=== PATIENT | female | born 1965 | race Caucasian/White ===

== ENCOUNTER 2021-02-25 15:01 | Outpatient (CLI) | payer BC, SELFPAY ==
--- NOTE | ~2021-02-25 | MM_ITS ---
EXAMINATION: MM screening [facility] w [facility] HISTORY: Screening mammogram, family history of breast cancer in her mother. TECHNIQUE: Craniocaudal and mediolateral oblique 3-D tomosynthesis images were obtained and synthetic 2-D images were generated. CAD analysis was submitted and interpreted. COMPARISON: 05/28/2015, 01/23/2014, 07/17/2013, 07/11/2013 BREAST PARENCHYMAL COMPOSITION: There are scattered areas of fibroglandular density. FINDINGS: There is no evidence of suspicious mass, calcification, or architectural distortion to sugg est malignancy in either breast. There has been no suspicious interval change. IMPRESSION: 1. No mammographic evidence of malignancy. 2. Recommend routine screening mammography in one year. BI-RADS Category 1: Negative Reviewed, dictated and finalized at location A.
== END 2021-02-25 15:02 | disposition home or self-care (01) ==
LOC: ANHIMG 15:06
PROVIDERS: PCP Nurse Practitioner Family; Visit Provider Nurse Practitioner Family
DX: Z12.31 Encounter for screening mammogram for malignant neoplasm of breast (principal)
CPT/HCPCS: 77063; 77067

== ENCOUNTER 2022-05-12 14:56 | Outpatient (CLI) | payer BC, SELFPAY ==
--- NOTE | ~2022-05-12 | MM_ITS ---
EXAMINATION: MM screening [facility] BI w cyrus HISTORY: Screening mammogram TECHNIQUE: Craniocaudal and mediolateral oblique 3-D tomosynthesis images were obtained and synthetic 2-D images were generated. CAD analysis was submitted and interpreted. COMPARISON: 02/25/2021, 05/28/2015, 02/02/2014, 07/17/2013, 07/11/2013 BREAST PARENCHYMAL COMPOSITION: There are scattered areas of fibroglandular density. FINDINGS: There is no suspicious mass, calcification, or architectural distortion to suggest malignan cy in either breast. There has been no suspicious interval change. IMPRESSION: 1. No mammographic evidence of malignancy. 2. Recommend routine screening mammography in one year. BI-RADS Category 1: Negative Reviewed, dictated and finalized at location A.
== END 2022-05-12 14:57 | disposition home or self-care (01) ==
PROVIDERS: PCP Nurse Practitioner Family; Visit Provider Nurse Practitioner Family
DX: Z12.31 Encounter for screening mammogram for malignant neoplasm of breast (principal)
CPT/HCPCS: 77063; 77067

== ENCOUNTER 2023-05-07 14:18 | Emergency (ER) | payer BC, SELFPAY ==
[2023-05-07 14:32] VITALS: BP 135/76; PULSE 89; RESP 20; TEMP 36.3; O2SAT 99
--- NOTE | 2023-05-07 15:01 | ED.FEMALEGU ---
HPI - Female Genitourinary General Chief complaint: Urogenital-Female Stated complaint: uti Time Seen by Provider: 05/07/23 14:40 Source: patient Mode of arrival: ambulatory Limitations: no limitations History of Present Illness HPI Narrative: Kendal Fowler is a 57-year-old female patient presenting to the clinic today with complaints of a possible UTI. She is reporting she is having some left-sided abdominal discomfort, burning with urination, and blood in her urine. She had take some azo this morning. She denies any fever or chills or any flank pain. Related Data Home Medications Medication Instructions Recorded Confirmed atorvastatin 10 mg tablet 10 mg PO DAILY 05/07/23 05/07/23 escitalopram oxalate 5 mg tablet 5 mg PO DAILY 05/07/23 05/07/23 fluticasone propionate 50 50 mcg intranasal BID 05/07/23 05/07/23 mcg/actuation nasal spray,suspension lisinopril 10 1 tablet PO DAILY 05/07/23 05/07/23 mg-hydrochlorothiazide 12.5 mg tablet omeprazole 40 mg capsule,delayed 40 mg PO DAILY 05/07/23 05/07/23 release Allergies Allergy/AdvReac Type Severity Reaction Status Date / Time No Known Allergies Allergy Unverified 05/07/23 14:27 Review of Systems Review of Systems: Pertinent positives per HPI. Patient denies any fever, chills, rash, headache, visual changes, dizziness, cough, runny nose, sore throat, shortness of breath, chest pain, palpitations, nausea, vomiting, diarrhea, constipation PMFSH Comments At the time of my signature, I reviewed and agree with the nursing past medical, surgical, social, and family history. There is no relevant family history pertinent to the patient complaint. Exam Narrative: General: Well-developed, well nourished, in no apparent distress. Head: Normocephalic, atraumatic. Cardio: Regular rate and rhythm, s1 and s2 normal, no murmur appreciated. Resp: Clear to auscultation bilaterally, no rhonchi, rales, wheezing or rubs. Abdomen: Soft, pliable, bowel sounds present in all quadrants, mild tender to palpation over the left lower abdomen, no organomegly, no CVAT tenderness. Course Course Emergency Course: Portions of this record may have been created with voice recognition software. Level of Care: Express Care Visit Vital Signs Vital signs: Vital Signs Temperature 36.3 C L 05/07/23 14:32 Pulse Rate 89 05/07/23 14:32 Respiratory Rate 20 05/07/23 14:32 Blood Pressure 135/76 05/07/23 14:32 Pulse Oximetry 99 05/07/23 14:32 Oxygen Delivery Room Air 05/07/23 14:32 Temperature 36.3 C L 05/07/23 14:32 Pulse Rate 89 05/07/23 14:32 Respiratory Rate 20 05/07/23 14:32 Blood Pressure 135/76 05/07/23 14:32 Pulse Oximetry 99 05/07/23 14:32 Oxygen Delivery Room Air 05/07/23 14:32 Vital signs reviewed MDM - Female Genitourinary MDM Narrative Medical decision making narrative: At the time of visit patient is resting comfortably on the exam table. Patient is reporting some mild left lower abdomen tenderness and burning with urination with blood in her urine that she knows this morning. Denies any history of kidney stones. She has taken azo this morning so this skewed the UA dip. Will send for culture. Will place the patient on Augmentin. Supportive measures were discussed with the patient she voiced understanding discharge instructions agrees to treatment plan. Differential Diagnosis Differential diagnosis: Likely urinary tract infection, cystitis and other (Pyelonephritis, ureterolithiasis) Lab Data Labs: Urine Glucose Trace Reference Range: Negative Urine Bilirubin 1+ Reference Range: Negative Urine Ketone Negative Reference Range: Negative Urine Specific [place] 1.030
== END 2023-05-07 15:07 | disposition home or self-care (01) ==
PROVIDERS: Emergency Provider Nurse Practitioner Family; PCP Nurse Practitioner Family
DX: N30.01 Acute cystitis with hematuria (principal); E78.00 Pure hypercholesterolemia, unspecified; I10 Essential (primary) hypertension
CPT/HCPCS: 81003; 87077; 87086; 87186; 99213; G0463

== ENCOUNTER 2023-10-07 08:21 | Outpatient (CLI) | payer BC, SELFPAY ==
[2023-10-07 17:50] LABS: Basophils Absolute Auto 0.1 K/mm3 (0.0-0.1); Basophils Percent Auto 0.7 % (0.2-1.2); Eosinophils Absolute Auto 0.1 K/mm3 (0-0.3); Eosinophils Percent Auto 1.4 % (0-4.4); Hematocrit 39.4 % (37.0-47.0); Hemoglobin 12.4 g/dL (12.0-15.0); Immature Granulocyte Absolute 0.02 K/mm3 (0.00-0.031); Immature Granulocyte Percent A 0.3 % (0-0.5); Lymphocytes Absolute Auto 2.31 K/mm3 (0.9-3.2); Lymphocytes Percent Auto 33.2 % (18.3-44.2); Mean Corpuscular HGB Conc 31.5 g/dl (32-36); Mean Corpuscular Hemoglobin 29.6 pg (26-34); Mean Platelet Volume 9.5 fl (7.4-10.4); Monocytes Absolute Auto 0.5 K/mm3 (0.1-0.6); Monocytes Percent Auto 6.5 % (2.6-8.5); Neutrophils Percent Auto 57.9 % (45.5-73.1); Platelet Count Result 265 k/mm3 (150-375); Red Blood Count 4.19 M/mm3 (4.2-5.4); Red Cell Distribution Width 12.8 % (11.5-14.5)
[2023-10-07 18:02] LABS: Vitamin D 25 Hydroxy 67.3 ng/mL
[2023-10-07 18:03] LABS: Alanine Aminotransferase 31 U/L (6-35); Albumin Level 4.4 g/dL (3.5-5.1); Alkaline Phosphatase 79 U/L (38-126); Anion Gap 7 mmol/L (8-16); Aspartate Amino Transferase 48 U/L (14-36); Bilirubin,Total 0.8 mg/dL (0.2-1.3); Blood Urea Nitrogen 17 mg/dL (7-17); Calcium 9.8 mg/dL (8.4-10.2); Carbon Dioxide 32 mmol/L (22-30); Chloride 102 mmol/L (98-107); Cholesterol 178 mg/dL (0-200); Estimated Glomerular Filt Rate > 60; Glucose 80 mg/dL (65-110); HDL Direct 44 mg/dL; Sodium 141 mmol/L (137-145); Triglycerides 144 mg/dL (<150)
[2023-10-07 18:15] LABS: LDL Cholesterol Direct 105 mg/dL
[2023-10-07 18:34] LABS: Hemoglobin A1C 5.5 % (<5.7)
== END 2023-10-07 08:22 | disposition home or self-care (01) ==
LOC: ANHGOSHLAB 08:22
PROVIDERS: PCP Nurse Practitioner Family; Visit Provider Nurse Practitioner Family
DX: Z00.00 Encounter for general adult medical examination without abnormal findings (principal); E78.5 Hyperlipidemia, unspecified; R73.03 Prediabetes; E55.9 Vitamin D deficiency, unspecified; Z13.29 Encounter for screening for other suspected endocrine disorder
CPT/HCPCS: 36415; 80053; 80061; 82306; 83036; 84443; 85025

== ENCOUNTER 2023-11-22 15:17 | Outpatient (CLI) | payer BC, SELFPAY ==
--- NOTE | ~2023-11-22 | MM_ITS ---
EXAMINATION: MM screening [facility] BI w [facility] HISTORY: Screening TECHNIQUE: Craniocaudal and mediolateral oblique 3-D tomosynthesis images were obtained and synthetic 2-D images were generated. CAD analysis was submitted and interpreted. COMPARISON: Comparison to multiple prior studies sequentially, with oldest reviewed study dated 02/2015. BREAST PARENCHYMAL COMPOSITION: Not dense: There are scattered areas of fibroglandular density. FINDINGS: There is no evidence of suspicious mass, calcification, or architectural distortion to sugg est malignancy in either breast. There has been no suspicious interval change. IMPRESSION: 1. No mammographic evidence of malignancy. 2. Recommend routine screening mammography in one year. BI-RADS Category 1: Negative Reviewed, dictated and finalized at location A.
== END 2023-11-22 15:18 | disposition home or self-care (01) ==
PROVIDERS: PCP Family Medicine; Visit Provider Nurse Practitioner Family
DX: Z12.31 Encounter for screening mammogram for malignant neoplasm of breast (principal)
CPT/HCPCS: 77063; 77067

== ENCOUNTER 2024-01-18 01:04 | Day surgery (SDC) | payer BC, SELFPAY ==
[2024-01-04 15:37] VITALS: BMI 29.9
[2024-01-18 06:40] VITALS: BP 124/74; PULSE 84; RESP 16; TEMP 36; O2SAT 99
[2024-01-18] MEDS: LACTATED RINGERS 1,000 ML 150 ML IV CONT (06:48)
--- NOTE | 2024-01-18 07:49 | WPDANESEPPF ---
Anes - Initial Pre Proc Eval Procedure: Operation Date: 01/18/24 08:00 Proposed Procedures p Colonoscopy - Jhon Dan MD Date/Time: 01/18/24 07:49 Surgeon: Jhon Dan MD Pre Op Diagnosis: family hx colon polyps Patient Data Age: 58 Gender: F Height: 1.68 m Weight: 84.1 kg Last Vital Signs Temp 96.8 F L 01/18/24 06:40 Pulse 84 01/18/24 06:40 Resp 16 01/18/24 06:40 BP 124/74 01/18/24 06:40 Pulse Ox 99 01/18/24 06:40 O2 Del Method Room Air 01/18/24 06:40 Allergies Allergy/AdvReac Type Severity Reaction Status Date / Time No Known Allergies Allergy Verified 01/18/24 06:39 Home Medications Medication Instructions Recorded Confirmed Type escitalopram oxalate 5 mg tablet 5 mg PO DAILY 05/07/23 01/04/24 History fluticasone propionate 50 50 mcg intranasal BID 05/07/23 01/04/24 History mcg/actuation nasal spray,suspension omeprazole 40 mg capsule,delayed 40 mg PO DAILY 05/07/23 01/04/24 History release atorvastatin 10 mg tablet 10 mg PO DAILY #90 tabs 10/07/23 01/04/24 Rx lisinopril 10 1 tablet PO DAILY #90 tabs 10/07/23 01/04/24 Rx mg-hydrochlorothiazide 12.5 mg tablet Patient hx anesthesia problems: none Family hx anesthesia problems: none Results Review: All pre-operative results and documents have been reviewed as part of the pre-operative evaluation. [facility] Past Medical History Medical History (Updated 10/07/23 @ 08:34 by Nelly Escobedo APRN) Allergies Anxiety Chronic constipation GERD (gastroesophageal reflux disease) HTN (hypertension) HTN (hypertension) with goal to be determined Hyperlipidemia Family History Family History (Updated 10/07/23 @ 07:40 by Jigna Waters MA) Father Heart disease Hypertension Mother Hypertension Heart disease Depression Sibling Hypertension Diabetes mellitus Heart disease Cerebrovascular accident Daughter Hypertension Depression Social History Social History (Updated 10/07/23 @ 07:41 by Jigna Waters MA) Smoking status: Never smoker Alcohol intake: never Substance use: never Substance use type: does not use Do You Feel Safe in your Home?: Yes Lack of Transportation: No Lack of Food: Never True Current Housing: I Have Housing Concerned About Future Housing: No Difficulty Paying Gas/Electric Bills: No Difficulty Paying for Meds: No Currently Unemployed: No Education: High School Diploma/GED Difficulty w/ Childcare or Family Care: No Living arrangements: with family Occupation/Education: occupation Gender identity (if verbalized by the patient): Female Sexual Orientation (if Verbalized by the Patient): Straight or Heterosexual Agree to blood products: Yes Anes - Eval Final PreProcedure Day of Procedure 01/18/24 07:49 Patient weight: overweight Heart: regular rate and rhythm Lungs: clear to auscultation Airway: Mallampati scale class II Neurological: alert and oriented Last oral intake: >/= 8 hours ASA classification: II Emergent: no Anesthetic plan: proceed Anesthesia type and monitoring: general GIVS and standard monitoring Results Review: All pre-operative results and documents have been reviewed as part of the pre-operative evaluation. Informed Consent: The patient's anesthetic plan and its attendant risks and benefits were discussed with the patient/family/POA. Questions were solicited and answers provided to the satisfaction of the patient/family/POA.
--- NOTE | 2024-01-18 07:54 | PM.HPGS ---
History of Present Illness History of Present Illness Consent: Risks, benefits, and alternatives have been discussed and questions answered. Patient agrees to proceed with procedure. Chief complaint: family hx colon polyps Narrative: Marleen Avendano is a 58 year old female here for screening colonoscopy, last one 2015 Review of Systems Review of Systems: All systems reviewed & are unremarkable except as noted in HPI and below PMFSH Past Medical History Medical History (Updated 01/18/24 @ 07:55 by Jhon Dan MD) Allergies Anxiety Chronic constipation Colon cancer screening GERD (gastroesophageal reflux disease) HTN (hypertension) HTN (hypertension) with goal to be determined Hyperlipidemia Family History Family History (Updated 10/07/23 @ 07:40 by Jigna Waters MA) Father Heart disease Hypertension Mother Hypertension Heart disease Depression Sibling Hypertension Diabetes mellitus Heart disease Cerebrovascular accident Daughter Hypertension Depression Social History Social History (Updated 10/07/23 @ 07:41 by Jinga Waters MA) Smoking status: Never smoker Alcohol intake: never Substance use: never Substance use type: does not use Do You Feel Safe in your Home?: Yes Lack of Transportation: No Lack of Food: Never True Current Housing: I Have Housing Concerned About Future Housing: No Difficulty Paying Gas/Electric Bills: No Difficulty Paying for Meds: No Currently Unemployed: No Education: High School Diploma/GED Difficulty w/ Childcare or Family Care: No Living arrangements: with family Occupation/Education: occupation Gender identity (if verbalized by the patient): Female Sexual Orientation (if Verbalized by the Patient): Straight or Heterosexual Agree to blood products: Yes Meds Home Medications and Allergies Home Medications Medication Instructions Recorded Confirmed Type escitalopram oxalate 5 mg tablet 5 mg PO DAILY 05/07/23 01/04/24 History fluticasone propionate 50 50 mcg intranasal BID 05/07/23 01/04/24 History mcg/actuation nasal spray,suspension omeprazole 40 mg capsule,delayed 40 mg PO DAILY 05/07/23 01/04/24 History release atorvastatin 10 mg tablet 10 mg PO DAILY #90 tabs 10/07/23 01/04/24 Rx lisinopril 10 1 tablet PO DAILY #90 tabs 10/07/23 01/04/24 Rx mg-hydrochlorothiazide 12.5 mg tablet Allergies Allergy/AdvReac Type Severity Reaction Status Date / Time No Known Allergies Allergy Verified 01/18/24 06:39 Vital Signs Vital Signs - 24 hr 01/18/24 06:40 Temperature 96.8 F L Pulse Rate 84 Respiratory Rate 16 Blood Pressure 124/74 Pulse Oximetry 99 Oxygen Delivery Room Air Exam Const: General: comfortable and no acute distress HENMT: Face/Nose/Sinus: Normal nares present Eyes: General: appearance normal, both eyes and all related structures Neck: Neck: no JVD Resp: Auscultation: clear to auscultation bilaterally Cardio: Rate: regular rate Rhythm: regular rhythm GI: Inspection: non-distended GI Palp: Yes Soft to palpation Skin: General skin exam: normal color Neuro: General: gait normal Speech: normal speech Extrem: General: normal to inspection Psych: Mental Status: mental status grossly normal Assessment and Plan Assessment and plan (1) Colon cancer screening: Code(s): Z12.11 - Encounter for screening for malignant neoplasm of colon Status: Acute Assessment and Plan: colonoscopy
[2024-01-18 08:15] VITALS: BP 101/62; PULSE 67; RESP 23; O2SAT 96
[2024-01-18 08:25] VITALS: BP 109/71; PULSE 64; RESP 19; O2SAT 96
[2024-01-18 08:35] VITALS: BP 114/78; PULSE 64; RESP 17; O2SAT 100
== END 2024-01-18 08:46 | disposition home or self-care (01) ==
PROVIDERS: PCP Family Medicine; Referring Provider Nurse Practitioner Family; Visit Provider Internal Medicine Gastroenterology
PROC: 0DJD8ZZ Inspection of Lower Intestinal Tract, Via Natural or Artificial Opening Endoscopic (ICD-10-PCS; CPT 45378; principal; 2024-01-18 08:00)
DX: Z12.11 Encounter for screening for malignant neoplasm of colon (principal); K64.8 Other hemorrhoids; Z86.010 Personal history of colon polyps; I10 Essential (primary) hypertension; E78.5 Hyperlipidemia, unspecified; K21.9 Gastro-esophageal reflux disease without esophagitis; F41.9 Anxiety disorder, unspecified
CPT/HCPCS: 45378; J2704; J7120

== ENCOUNTER 2024-04-13 11:54 | Outpatient (NON) | payer BC, SELFPAY | END 2024-04-13 11:55 | disposition home or self-care (01) | LOC: ANHGOSHLAB 11:55 | PROVIDERS: PCP Family Medicine; Visit Provider Nurse Practitioner Family | DX: R39.9 Unspecified symptoms and signs involving the genitourinary system (principal) | CPT/HCPCS: 87077; 87086; 87088; 87147; 87186 ==

== ENCOUNTER 2024-10-18 07:57 | Outpatient (CLI) | payer BC, SELFPAY ==
[2024-10-18 08:25] LABS: Basophils Percent Auto 0.4 % (0.2-1.2); Eosinophils Absolute Auto 0.1 K/mm3 (0-0.3); Hematocrit 38.7 % (37.0-47.0); Hemoglobin 12.4 g/dL (12.0-15.0); Immature Granulocyte Absolute 0.04 K/mm3 (0.00-0.031); Immature Granulocyte Percent A 0.5 % (0-0.5); Lymphocytes Absolute Auto 3.16 K/mm3 (0.9-3.2); Lymphocytes Percent Auto 39.7 % (18.3-44.2); Mean Corpuscular Hemoglobin 29.2 pg (26-34); Mean Corpuscular Volume 91.3 fl (80-100); Mean Platelet Volume 8.7 fl (7.4-10.4); Monocytes Absolute Auto 0.4 K/mm3 (0.1-0.6); Monocytes Percent Auto 5.4 % (2.6-8.5); Neutrophils Absolute Auto 4.2 K/mm3 (1.3-6.7); Platelet Count Result 278 k/mm3 (150-375); Red Blood Count 4.24 M/mm3 (4.2-5.4); Red Cell Distribution Width 13.1 % (11.5-14.5)
[2024-10-18 08:46] LABS: Alanine Aminotransferase 24 U/L (6-35); Albumin Level 4.3 g/dL (3.5-5.1); Alkaline Phosphatase 69 U/L (38-126); Anion Gap 6 mmol/L (4-12); Aspartate Amino Transferase 22 U/L (14-36); Bilirubin,Total 0.9 mg/dL (0.2-1.3); Blood Urea Nitrogen 18 mg/dL (7-17); Calcium 9.9 mg/dL (8.4-10.2); Carbon Dioxide 31 mmol/L (22-30); Chloride 102 mmol/L (98-107); Cholesterol 190 mg/dL (0-200); Estimated Glomerular Filt Rate 60; Glucose 83 mg/dL (65-110); HDL Direct 60 mg/dL; Potassium 4.4 mmol/L (3.4-5.0); Sodium 139 mmol/L (137-145); Triglycerides 108 mg/dL (<150)
[2024-10-18 10:22] LABS: LDL Cholesterol Direct 99 mg/dL
[2024-10-18 11:35] LABS: Free T4 Free Thyroxine Reflex 0.97 ng/dL (0.78-2.19)
[2024-10-18 18:29] LABS: Total Triiodothyronine (T3) 1.38 NG/ML (0.97-1.69)
== END 2024-10-18 07:58 | disposition home or self-care (01) ==
LOC: ANHLAB 07:59
PROVIDERS: PCP Family Medicine; Visit Provider Nurse Practitioner Family
DX: E55.9 Vitamin D deficiency, unspecified (principal); E78.5 Hyperlipidemia, unspecified; I10 Essential (primary) hypertension; Z00.00 Encounter for general adult medical examination without abnormal findings
CPT/HCPCS: 36415; 80053; 80061; 82306; 84439; 84443; 84480; 85025

== ENCOUNTER 2025-03-05 15:38 | Outpatient (CLI) | payer BC, SELFPAY ==
--- NOTE | ~2025-03-05 | MM_ITS ---
EXAMINATION: MM screening ligia BI w cyrus HISTORY: Screening TECHNIQUE: Craniocaudal and mediolateral oblique 3-D tomosynthesis images were obtained and synthetic 2-D images were generated. CAD analysis was submitted and interpreted. COMPARISON: Comparison to multiple prior studies sequentially, with oldest reviewed study dated 02/2015. BREAST PARENCHYMAL COMPOSITION: Not dense: There are scattered areas of fibroglandular density. FINDINGS: There is no evidence of suspicious mass, calcification, or architectural distortion to sugg est malignancy in either breast. There has been no suspicious interval change. IMPRESSION: 1. No mammographic evidence of malignancy. 2. Recommend routine screening mammography in one year. BI-RADS Category 1: Negative Reviewed, dictated and finalized at location B.
--- OUTSIDE RECORDS SUMMARY | 2025-03-05 15:42 | XMS_ITS | Data Portability ---
Author Organization [facility], Main Office Address [address] [place] [address] Assessment No assessment recorded. Plan of Treatment Reminders Order Date Submit Date Provider Last Modified By Organization Details Last Modified Time Details Appointments None recorded. Lab TSH, serum, reflex free T4 023 023 [email or web address] [facility] (Lab), [address] [place] [address], [address], 3 15:07:20 CMP, serum or plasma 023 [facility] (Lab), [address] [place] [address], [address], 3 19:50:10 HbA1c (hemoglob in A1c), blood 023 023 [facility] (Lab), [address] [place] [address], [address], 3 07:56:34 lipid panel, serum 023 023 [facility] (Lab), [address] [place] [address], [address], 3 19:50:04 CBC w/ auto diff 023 023 [facility] (Lab), [address] [place] [address], [address], 3 20:25:43 Referral None recorded. Procedures None recorded. Surgeries None recorded. Imaging bone density 023 023 [facility], [address] [facility], [place], [address], 3 13:54:31 Medication Orders None recorded. Patient TargetsNo targets recorded. Patient Instructions Encounter Date Encounter Id Patient Instructions Last Modified By Organization Details Last Modified Time 11/10/2022 [id number] FU annually for wellness after 11/12/23 6 mo fu HTN gerd anxiety allergies, lipid [email or web address] Not available 11/10/2022 16:37:03 Reason for Referral None Reported. Results Created Date Observation Date Name Description Value Unit Range Abnormal Flag Note LastModifiedBy Organization Detail LastModifiedTime 03/15/20 22 03/15/2022 VITAM IN B12 (LEVY STEFANIE ) vb12 470 pg/mL 239-93 1 Not Available [facility] (Lab) [address] [place], [address], 03/15/2022 17:56:16 03/15/20 22 03/15/2022 DU TIN ferritin 78 NG/mL 11.1-2 64 Not Available [facility] (Lab) [address] [place], [address], 03/15/2022 17:41:46 03/15/20 22 03/15/2022 IRON/ TIBC PANEL total iron binding capacity 336 mcg/d L 265-47 5 Not Available [facility] (Lab) [address] [place], [address], 03/15/2022 17:13:43 03/15/20 22 03/15/2022 IRON/ TIBC PANEL % transferrin saturation 24 % 20-55 Not Available [facility] (Lab) [address] [place], [address], 03/15/2022 17:13:43 03/15/20 22 03/15/2022 IRON/ TIBC PANEL unsaturated iron bind capacity 256 mcg/d L 126-38 2 Not Available [facility] (Lab) [address] [place], [address], 03/15/2022 17:13:43 03/15/20 22 03/15/2022 IRON/ TIBC PANEL iron 80 mcg/d L 42-175 Not Available [facility] (Lab) [address] [place], [address], 03/15/2022 17:13:43 03/15/20 22 03/15/2022 CBC W/O DIFFE RENTI AL hematocrit 38.1 % 35.7-4 5.7 Not Available [facility] (Lab) [address] [place], [address], 03/15/2022 17:04:28 03/15/20 22 03/15/2022 CBC W/O DIFFE RENTI AL white blood cells 8.5 x10'3 /uL 4.2-10 .8 Not Available [facility] (Lab) [address] [place], [address], 03/15/2022 17:04:28 03/15/20 22 03/15/2022 CBC W/O DIFFE RENTI AL red blood cells 4.11 x10'6 /uL 3.80-5 .20 Not Available [facility] (Lab) [address] [place], [address], 03/15/2022 17:04:28 03/15/20 22 03/15/2022 CBC W/O DIFFE RENTI AL hemoglobin 12.2 g/dL 12.0-1 5.6 Not Available [facility] (Lab) [address] [place], [address], 03/15/2022 17:04:28 03/15/20 22 03/15/2022 CBC W/O DIFFE RENTI AL mean red cell volume 92.7 fL 82.0-9 9.0 Not Available [facility] (Lab) [address] [place], [address], 03/15/2022 17:04:28 03/15/20 22 03/15/2022 CBC W/O DIFFE RENTI AL mean red cell hemoglobin 29.7 pg 27.0-3 3.0 Not Available [facility] (Lab) [address] [place], [address], 03/15/2022 17:04:28 03/15/20 22 03/15/2022 CBC W/O DIFFE RENTI AL mean RBC HGB concentratio n 32.0 g/dL 31.0-3 6.0 Not Available [facility] (Lab) [address] [place], [address], 03/15/2022 17:04:28 03/15/20 22 03/15/2022 CBC W/O DIFFE RENTI AL red cell distribution width 12.6 % 11.8-1 5.5 Not Available [facility] (Lab) [address] [place], [address], 03/15/2022 17:04:28 03/15/20 22 03/15/2022 CBC W/O DIFFE RENTI AL platelets 281 x10'3 /uL 150-40 0 Not Available [facility] (Lab) [address] [place], [address], 03/15/2022 17:04:28 03/15/20 22 03/15/2022 CBC W/O DIFFE RENTI AL mean platelet volume 10.0 fL 9.0-12 .4 Not Available [facility] (Lab) [address] [place], [address], 03/15/2022 17:04:28 04/07/20 23 04/07/2023 LIPID PANEL cholesterol 177 mg/dL 140-19 9 [facility] NSUS RECOM MENDA TION FOR PINKY STERO L: ADULT CHILD LOW RISK: <200 <170 BORDE RLINE : <200- 239 ----- HIGH RISK: >240 >200 Not Available [facility] (Lab) [address] [place], [address], 04/07/2023 19:50:04 04/07/2004/07/2023 LIPID PANEL triglyceride s 128 mg/dL 0-150 [facility] NSUS REPOR T RECOM MENDA TION FOR TRIGL YCERI RALEIGH: ADULT CHILD LOW RISK: <150 ----- BODER LINE: 150-1 99 ----- HIGH RISK: >200 ----- Not Available [facility] (Lab) [address] [place], [address], 04/07/2023 19:50:04 04/07/2004/07/2023 LIPID PANEL HDL cholesterol 39 mg/dL 40- low Not Available [facility] (Lab) [address] [place], [address], 04/07/2023 19:50:04 04/07/20 23 04/07/2023 LIPID PANEL LDL cholesterol, calculated 112 mg/dL 0-130 [facility] MARIA GUADALUPE NSUS REPOR T RECOM MENDA TIONS FOR LDL: ADULT CHILD LOW RISK <130 <110 (OPTI MAL LDL) <100 ----- BORDE RLINE : 130-1 59 ----- HIGH RISK: >160 >130 A TRIGL YCERI DE RESUL T >400 INVAL IDATE S THE CALCU LATIO N FOR LDL FRACT IONAT ION - THE LDL RESUL T WILL NOT BE REPOR RAQUEL. Not Available [facility] (Lab) [address] [place], [address], 04/07/2023 19:50:04 04/07/2004/07/2023 COMPR EHENS TASHA METAB OLIC PANEL sodium 140 mmol/ L 137-14 5 Not Available [facility] (Lab) [address] [place], [address], 04/07/2023 19:50:09 04/07/20 23 04/07/2023 COMPR EHENS TASHA METAB OLIC PANEL potassium 3.9 mmol/ L 3.5-5. 1 Not Available [facility] (Lab) [address] [facility] [place], [address], 04/07/2023 19:50:09 04/07/20 23 04/07/2023 COMPR EHENS TASHA METAB OLIC PANEL chloride 105 mmol/ L 98-107 Not Available [facility] (Lab) [address] [facility] [place], [address], 04/07/2023 19:50:09 04/07/20 23 04/07/2023 COMPR EHENS TASHA METAB OLIC PANEL carbon dioxide 28 mmol/ L 22-30 Not Available [facility] (Lab) [address] [place], [address], 04/07/2023 19:50:09 04/07/20 23 04/07/2023 COMPR EHENS TASHA METAB OLIC PANEL anion gap 10.9 mmol/ L 14-22 low Not Available [facility] (Lab) [address] [place], [address], 04/07/2023 19:50:09 04/07/20 23 04/07/2023 COMPR EHENS TASHA METAB OLIC PANEL glucose 97 mg/dL 70-99 Not Available [facility] (Lab) [address] [place], [address], 04/07/2023 19:50:09 04/07/20 23 04/07/2023 COMPR EHENS TASHA METAB OLIC PANEL BUN 13 mg/dL 8-19 Not Available [facility] (Lab) [address] [place], [address], 04/07/2023 19:50:09 04/07/20 23 04/07/2023 COMPR EHENS TASHA METAB OLIC PANEL creatinine 0.82 mg/dL 0.66-1 .25 Not Available [facility] (Lab) [address] [place], [address], 04/07/2023 19:50:09 04/07/20 23 04/07/2023 COMPR EHENS TASHA METAB OLIC PANEL GFR >60 Refer ence Range : Hollister ge GFR Healt hy Adult : >60 mL/mi n/1.7 3 m2 Chron ic Kidne y Disea se: 15-60 mL/mi n/1.7 3 m2 Kidne y Failu re: <15/m L/min /1.73 m2 www.n iddk. nih.g ov The MDRD study equat ion has not been valid ated in child jessy <18 years of age; pregn ant women ; the elder ly >85 years of age; or in some racia l or ethni c subgr oups, such as Hispa nics. Outsi de the valid ated keesha eters , estim ated GFR is less accur ate, requi ring clini ruddy judgm ent on a case- by-ca se basis . Clini ruddy inter preta tion for other races and ages must be made by the clini jonathan. The MDRD study equat ion has not been valid ated for the evalu ation of serum creat inine relat ed to nutri khushi l statu s or medic ation usage . For perso ns <18 years of age, a pedia tric GFR calcu lator is avail able on the [facility] websi te: https ://diana salomon.jasbir rg/pr ofess ional s/kdo qi/gf r_cal culat or Not Available [facility] (Lab) [address] [place], [address], 04/07/2023 19:50:09 04/07/20 23 04/07/2023 COMPR EHENS TASHA METAB OLIC PANEL alkaline phosphatase 66 U/L 38-126 Not Available [facility] (Lab) [address] [place], [address], 04/07/2023 19:50:09 04/07/20 23 04/07/2023 COMPR EHENS TASHA METAB OLIC PANEL alanine aminotransfe rase 28 U/L 0-35 Not Available [facility] (Lab) [address] [place], [address], 04/07/2023 19:50:09 04/07/20 23 04/07/2023 COMPR EHENS TASHA METAB OLIC PANEL aspartate aminotransfe rase 31 U/L 15-37 Not Available [facility] (Lab) [address] [place], [address], 04/07/2023 19:50:09 04/07/20 23 04/07/2023 COMPR EHENS TASHA METAB OLIC PANEL bilirubin, total 0.50 mg/dL 0.20-1 .30 Not Available [facility] (Lab) [address] [place], [address], 04/07/2023 19:50:09 04/07/20 23 04/07/2023 COMPR EHENS TASHA METAB OLIC PANEL calcium 9.3 mg/dL 8.4-10 .2 Not Available [facility] (Lab) [address] [place], [address], 04/07/2023 19:50:09 04/07/20 23 04/07/2023 COMPR EHENS TASHA METAB OLIC PANEL total protein 6.8 g/dL 6.3-8. 2 Not Available [facility] (Lab) [address] [place], [address], 04/07/2023 19:50:09 04/07/20 23 04/07/2023 COMPR EHENS TASHA METAB OLIC PANEL albumin 4.2 g/dL 3.4-5. 0 Not Available [facility] (Lab) [address] [place], [address], 04/07/2023 19:50:09 04/07/20 23 04/07/2023 COMPR EHENS TASHA METAB OLIC PANEL globulin 2.6 g/dL 2.6-4. 2 Not Available [facility] (Lab) [address] [place], [address], 04/07/2023 19:50:09 04/07/20 23 04/07/2023 COMPR EHENS TASHA METAB OLIC PANEL A/G ratio 1.6 ratio 1.0-2. 0 Not Available [facility] (Lab) [address] [place], [address], 04/07/2023 19:50:09 04/07/20 23 04/07/2023 TSH W/REF BENNETT FT4 TSH with reflex free T4 1.240 uIU/m L 0.465- 4.680 Not Available [facility] (Lab) [address] [place], [address], 04/07/2023 20:14:55 04/07/20 23 04/07/2023 CBC/C OMPLE TE BLD COUNT W/DIF F white blood cells 6.1 x10'3 /uL 4.2-10 .8 Not Available [facility] (Lab) [address] [place], [address], 04/07/2023 20:25:42 04/07/20 23 04/07/2023 CBC/C OMPLE TE BLD COUNT W/DIF F red blood cells 4.04 x10'6 /uL 3.80-5 .20 Not Available [facility] (Lab) [address] [place], [address], 04/07/2023 20:25:42 04/07/20 23 04/07/2023 CBC/C OMPLE TE BLD COUNT W/DIF F hemoglobin 12.2 g/dL 12.0-1 5.6 Not Available [facility] (Lab) [address] [place], [address], 04/07/2023 20:25:42 04/07/20 23 04/07/2023 CBC/C OMPLE TE BLD COUNT W/DIF F hematocrit 36.4 % 35.7-4 5.7 Not Available [facility] (Lab) [address] [facility], [address], 04/07/2023 20:25:42 04/07/20 23 04/07/2023 CBC/C OMPLE TE BLD COUNT W/DIF F mean red cell volume 90.1 fL 82.0-9 9.0 Not Available [facility] (Lab) [address] [place], [address], 04/07/2023 20:25:42 04/07/20 23 04/07/2023 CBC/C OMPLE TE BLD COUNT W/DIF F mean red cell hemoglobin 30.2 pg 27.0-3 3.0 Not Available [facility] (Lab) [address] [place], [address], 04/07/2023 20:25:42 04/07/20 23 04/07/2023 CBC/C OMPLE TE BLD COUNT W/DIF F mean RBC HGB concentratio n 33.5 g/dL 31.0-3 6.0 Not Available [facility] (Lab) [address] [facility] [place], [address], 04/07/2023 20:25:42 04/07/20 23 04/07/2023 CBC/C OMPLE TE BLD COUNT W/DIF F red cell distribution width 12.1 % 11.8-1 5.5 Not Available [facility] (Lab) [address] [place], [address], 04/07/2023 20:25:42 04/07/20 23 04/07/2023 CBC/C OMPLE TE BLD COUNT W/DIF F platelets 290 x10'3 /uL 150-40 0 Not Available [facility] (Lab) [address] [place], [address], 04/07/2023 20:25:42 04/07/20 23 04/07/2023 CBC/C OMPLE TE BLD COUNT W/DIF F mean platelet volume 9.9 fL 9.0-12 .4 Not Available [facility] (Lab) [address] [place], [address], 04/07/2023 20:25:42 04/07/20 23 04/07/2023 CBC/C OMPLE TE BLD COUNT W/DIF F neutrophils 57.0 % 39.0-7 2.0 Not Available [facility] (Lab) [address] [place], [address], 04/07/2023 20:25:42 04/07/20 23 04/07/2023 CBC/C OMPLE TE BLD COUNT W/DIF F lymphocytes 33.4 % 16.0-4 7.0 Not Available [facility] (Lab) [address] [place], [address], 04/07/2023 20:25:42 04/07/20 23 04/07/2023 CBC/C OMPLE TE BLD COUNT W/DIF F monocytes 7.3 % 5.0-12 .0 Not Available [facility] (Lab) [address] [place], [address], 04/07/2023 20:25:42 04/07/20 23 04/07/2023 CBC/C OMPLE TE BLD COUNT W/DIF F eosinophils 1.3 % 1.0-7. 0 Not Available [facility] (Lab) [address] [place], [address], 04/07/2023 20:25:42 04/07/20 23 04/07/2023 CBC/C OMPLE TE BLD COUNT W/DIF F basophils 0.5 % 0.0-2. 0 Not Available [facility] (Lab) [address] [place], [address], 04/07/2023 20:25:42 04/07/20 23 04/07/2023 CBC/C OMPLE TE BLD COUNT W/DIF F immature granulocytes 0.5 % 0.00-0 .50 Not Available [facility] (Lab) [address] [place], [address], 04/07/2023 20:25:42 04/07/20 23 04/07/2023 CBC/C OMPLE TE BLD COUNT W/DIF F neutrophils, absolute count 3.50 x10'3 /uL 1.5-8. 0 Not Available [facility] (Lab) [address] [place], [address], 04/07/2023 20:25:42 04/07/20 23 04/07/2023 CBC/C OMPLE TE BLD COUNT W/DIF F lymphocytes, absolute count 2.05 x10'3 /uL 1.07-3 .43 Not Available [facility] (Lab) [address] [place], [address], 04/07/2023 20:25:42 04/07/20 23 04/07/2023 CBC/C OMPLE TE BLD COUNT W/DIF F monocytes, absolute count 0.45 x10'3 /uL 0.29-0 .99 Not Available [facility] (Lab) [address] [place], [address], 04/07/2023 20:25:42 04/07/20 23 04/07/2023 CBC/C OMPLE TE BLD COUNT W/DIF F eosinophils, absolute count 0.08 x10'3 /uL 0.02-0 .53 Not Available [facility] (Lab) [address] [place], [address], 04/07/2023 20:25:42 04/07/20 23 04/07/2023 CBC/C OMPLE TE BLD COUNT W/DIF F basophils, absolute count 0.03 x10'3 /uL 0.01-0 .08 Not Available [facility] (Lab) [address] [place], [address], 04/07/2023 20:25:42 04/07/20 23 04/07/2023 CBC/C OMPLE TE BLD COUNT W/DIF F immature granulocytes ,absolute 0.03 x10'3 /uL 0.00-0 .05 Not Available [facility] (Lab) [address] [place], [address], 04/07/2023 20:25:42 04/07/20 23 04/07/2023 CBC/C OMPLE TE BLD COUNT W/DIF F nucleated red blood cells 0.0 % -0 Not Available [facility] (Lab) [address] [place], [address], 04/07/2023 20:25:42 04/07/20 23 04/07/2023 CBC/C OMPLE TE BLD COUNT W/DIF F NRBC# 0.00 x10'3 /uL Not Available [facility] (Lab) [address] [place], [address], 04/07/2023 20:25:42 04/07/20 23 04/07/2023 HEMOG LOBIN A1C HA1C 5.4 % 4.0-6. 0 Diabe yana Adan potts Crite lcemencia: <5.7% Consi stent with absen ce of diabe yana 5.7-6 .4% Consi stent with incre ased risk for diabe yana (pred iabet es) >OR=6 .5% Consi stent with diabe yana REFER ENCE: Diabe yana Care 2016, 39(Murray ppl.1 ):s13 -s22 Not Available [facility] (Lab) [address] [place], [address], 04/07/2023 21:29:31 05/13/20 22 05/12/2022 adan PARK bilat eral No observ ation record ed. [email or web address] [facility] [address] [facility] [address], [place], [address], 11/10/2022 16:36:17 12/04/19 23 12/03/2022 HbA1c (hemo globi n A1c), blood No observ ation record ed. [facility], [place], [address], 04/12/2023 07:56:34 12/04/19 23 12/03/2022 bone densi ty No observ ation record ed. [facility], [place], [address], 12/03/2022 15:46:41 Result Notes None recorded. Problems Name Problem SNOMED Code Status Onset Date Resolution Date Notes Provider Name and Address Organization Details Recorded Time Acute sinusitis 55159980 Active Not Available [facility] 3 05:55:29 Visual symptoms 961435501 Active Not Available [facility] 3 05:55:29 Mammography abnormal 061596350 Active Not Available [facility] 3 05:55:30 Menopausal flushing 173796479 Active 2020 Not Available [facility] 3 05:55:30 Gastroesophag eal reflux disease 405720655 Active Not Available [facility] 3 05:55:30 Vitamin D deficiency 03664403 Active Not Available [facility] 3 05:55:30 Enzyme level - finding 646117627 Active Not Available [facility] 3 05:55:30 Hypertensive disorder 07368437 Active Not Available [facility] 3 05:55:30 Hyperlipidemi a 69176596 Active Not Available [facility] 3 05:55:30 Posterior rhinorrhea 23792399 Active Not Available [facility] 3 05:55:30 Fatigue 70228351 Active Not Available [facility] 3 05:55:30 Anxiety 27376508 Active 2022 Lisa Walden NP [address] [facility], [place], [address] , [facility] 3 16:14:44 Allergic rhinitis 37482418 Active 2022 Lisa Walden NP [address], [place], [address] , [facility] [employer] [facility] 16:16:45 Acute urinary tract infection 434506403 Active 2022 Lisa Walden NP [address], [place], [address] , [facility] [email or web address] [facility] 12:08:38 Problem Notes None recorded. Procedures Surgical History Date Name Laterality Status Provider Name and Address Organization Details Recorded Time 12/04/19 23 Most Recent Bone Density completed Lisa Walden NP [address], [place], [address], [facility] [employer] [facility] 12/03/2022 13:59:07 08/22/19 23 Most Recent Mammogram completed Lisa Lu RN [facility] [email or web address] [facility] 11/10/2022 16:01:33 08/22/19 17 Date of Last Colonoscopy completed Not Available [facility] 10/20/2022 05:52:15 Imaging Results None recorded. Procedure Notes None recorded. Medical Equipment None Reported. Allergies No known drug allergies Medications Name Sig Start Date Stop Date Status Note LastModified by Organization Details LastModified Time atorvastati n 10 mg tablet TAKE 1 TABLET BY MOUTH DAILY 2022 active Not Available Not Available Not Avai lable Coricidin HBP Cough and Cold 4 mg-30 mg tablet Take 1 tablet every 6 hours by oral route as directed for 15 days. active Not Available Not Available No t Available hydrocodone 5 mg-acetamin ophen 325 mg tablet active Not Available Not Available No t Available prednisone 20 mg tablet TAKE 1 TABLET BY MOUTH EVERY DAY X 4 DAYS active Not Available Not Available No t Available omeprazole 40 mg capsule,del ayed release TAKE 1 CAPSULE BY MOUTH EVERY DAY active Not Available Not Available No t Available aspirin 81 mg tablet,roselia yed release TK 1 T PO D UTD 12/22 completed Not Available Not Available Not Available triamcinolo ne acetonide 0.1 % topical cream APPLY THIN LAYER TOPICALLY TO THE AFFECTED AREA TWICE DAILY 11/10 completed Not Available Not Available Not Available Kenalog 40 mg/mL suspension for injection Take 1.5 mL by injection route. 11/10 completed Not Available Not Available Not Available alprazolam 0.5 mg tablet active PRN Not Available Not Available Not Available amoxicillin 875 mg tablet Take 1 tablet every 12 hours by oral route with meals for 10 days. active Not Available Not Available No t Available tamsulosin 0.4 mg capsule active Not Available Not Available Not Available lansoprazol e 30 mg capsule,del ayed release TAKE 1 CAPSULE BY MOUTH DAILY QAM before breakfast . active Not Available Not Available No t Available ergocalcife rol (vitamin D2) 1,250 mcg (50,000 unit) capsule Take 1 po weekly for 8 weeks active Not Available Not Available No t Available lisinopril 10 mg-hydrochl orothiazide 12.5 mg tablet TAKE 1 TABLET BY MOUTH EVERY MORNING active Not Available Not Available No t Available levofloxaci n 500 mg tablet active Not Available Not Available Not Available methylpredn isolone 4 mg tablets in a dose pack TK UTD FOR RASH 12/27 completed Not Available Not Available Not Available ondansetron 4 mg disintegrat ing tablet Place 1 tablet every 6-8 hours by transling ual route as needed for 5 days. active Not Available Not Available No t Available fluticasone propionate 50 mcg/actuati on nasal spray,suspe nsion active Not Available Not Available Not Available loratadine 10 mg tablet TAKE 1 TABLET BY MOUTH EVERY DAY active Not Available Not Available No t Available amoxicillin 875 mg-potassiu m clavulanate 125 mg tablet TAKE 1 TABLET BY MOUTH EVERY 12 HOURS FOR 7 DAYS active Not Available Not Available No t Available amoxicillin 500 mg-potassiu m clavulanate 125 mg tablet TAKE 1 TABLET BY MOUTH EVERY 8 HOURS UNTIL ALL TAKEN 11/10 completed Not Available Not Available Not Available Crestor 10 mg tablet 1 tablet every evening 08/08 completed Not Available Not Available Not Available escitalopra m 5 mg tablet TAKE 1 TABLET BY MOUTH EVERY DAY active Not Available Not Available No t Available nitrofurant oin monohydrate /macrocryst als 100 mg capsule TAKE 1 CAPSULE BY MOUTH EVERY 12 HOURS FOR 10 DAYS active Not Available Not Available No t Available Boostrix Tdap 2.5 Lf unit-8 mcg-5 Lf/0.5 mL intramuscul ar syringe active Not Available Not Available N ot Available Suprep Bowel Prep Kit 17.5 gram-3.13 gram-1.6 gram oral solution active Not Available Not Available Not Available Kenalog-40 40 mg/mL suspension for injection Take 1.5 mL every day by injection route. 11/10 completed Not Available Not Available Not Available Vitals Date Recorded Body height Body mass index (BMI) Body weight Body temperature Respiratory rate Heart rate Oxygen saturation Oxygen saturation in Arterial blood by Pulse oximetry Systolic And Diastolic Provider Name and Address Organization Details Last Updated DateTime 3 170.18 cm 29.3 kg/m2 28975.5 2 g 98.5 [degF] 16 /min 86 /min 96 % 96 % 110/70 mm[Hg] Lisa Lu RN [facility] [employer] [facility] 3 15:58:45 Date Recorded Oxygen saturation Oxygen saturation in Arterial blood by Pulse oximetry Heart rate Body temperature Body weight Systolic And Diastolic Provider Name and Address Organization Details Last Updated DateTime 2 99 % 99 % 87 /min 97.8 [degF] 17758.1 8 g 118/76 mm[Hg] Not Available [facility] 3 05:52:42 Date Recorded Body height Provider Name an d Address Organization Details Last Updated DateTime 04/07/2023 170.18 cm Lisa Lu RN [facility] [email or web address] [facility] 04/07/2023 11:55:35 Date Recorded Body mass index (BMI) Body height Oxygen saturation Oxygen saturation in Arterial blood by Pulse oximetry Heart rate Body temperature Body weight Systolic And Diastolic Provider Name and Address Organization Details Last Updated DateTime 2 28.7 kg/m2 170.18 cm 96 % 96 % 80 /min 97.9 [degF] 67296.4 g 122/76 mm[Hg] Not Available [facility] 3 05:52:42 Social History Question Answer Notes LastModified by Organizat ion Details LastModified Time Tobacco Smoking Status Never Smoker Not Available [facility] 10/20/2022 05:51:59 Do You Have An Advance Directive? No Information not available 11/10/2022 Is Blood Transfusion Acceptable In An Emergency? Yes Information not available 11/10/2022 What Is Your Level Of Caffeine Consumption? Moderate [id number] Information not available 10/20/2022 What Is Your Code Status? Full Code Information not available 11/10/2022 In The 14 Days Before Symptom Onset, Have You Had Close Contact With A Laboratory-confi rmed COVID-19 While That Case Was Ill? No Information not available 11/10/2022 In The 14 Days Before Symptom Onset, Have You Had Close Contact With A Person Who Is Under Investigation For COVID-19 While That Person Was Ill? No Information not available 11/10/2022 What Type Of Diet Are You Following? REGULAR [id number] Information not available 10/20/2022 What Is The Highest Grade Or Level Of School You Have Completed Or The Highest Degree You Have Received? [id number] [id number] Information not available 10/20/2022 How Many Days Of Moderate To Strenuous Exercise, Like A Brisk Walk, Did You Do In The Last 7 Days? 1 Walking Information not available 11/10/2022 On Those Days That You Engage In Moderate To Strenuous Exercise, How Many Minutes, On Average, Do You Exercise? 45 Information not available 11/10/2022 Have There Been Any Changes To Your Family Or Social Situation? No MIGRATION.[id number] Information not available 10/20/2022 What Is The Fluoride Status Of Your Home? Unknown MIGRATION.[id number] [id number] Information not available 10/20/2022 Do You Use Insect Repellent Routinely? No MIGRATION.19683 42357 Information not available 10/20/2022 Where Do You Live? [place] MIGRATION.01220 08240 Information not available 10/20/2022 Do You Have A Medical Power Of Oral Therapist? No Information not available 11/10/2022 How Many Children Do You Have? 5 Information not available 11/10/2022 Do You Have Any Pets? No MIGRATION.36533 [id number] Information not available 10/20/2022 Do You Use Protection During Sex? No Information not available 11/10/2022 What Is Your Relationship Status? MIGRATION.61506 20852 Information not available 10/20/2022 Do You Use Your Seat Belt Or Car Seat Routinely? Yes MIGRATION.31193 17249 Information not available 10/20/2022 Are You Sexually Active? Yes Information not available 11/10/2022 Do You Have Smoke And Carbon Monoxide Detectors In Your Home? Yes MIGRATION.98233 30675 Information not available 10/20/2022 Are You Passively Exposed To Smoke? No MIGRATION.72174 22933 Information not available 10/20/2022 Are There Any Smokers In Your House? No MIGRATION.96716 98928 Information not available 10/20/2022 Do You Participate In Social Media? No Information not available 11/10/2022 Do You Use Sunscreen Routinely? No MIGRATION.95878 16520 Information not available 10/20/2022 Have You Recently Traveled Abroad? No Information not available 11/10/2022 Are You Currently In School? No MIGRATION.04590 26497 Information not available 10/20/2022 Do You Have Any Dietary Restrictions? No MIGRATION.05699 06703 Information not available 10/20/2022 Sex: Female Functional Status Question Answer Note LastModified by [employer] Details LastModified Time Do you use any illicit or recreational drugs? No Information not available 11/10/2022 What is your level of alcohol consumption? None MIGRATION.[id number] 026 Information not available 10/20/2022 Are you currently employed? 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 Occasional MIGRATION.[id number] 026 Information not available 10/20/2022 Mental Status Question Answer Note LastModified by [employer] Details LastModified Time Do you feel stressed (tense, restless, nervous, or anxious, or unable to sleep at night)? [id number] [id number].[id number] 6 Information not available 10/20/2022 Family History Relationship Description Onset Age of this Age Resolved Age Notes LastModified by Organization Details LastModified Time Sister Sarcoidosis ~50 MIGRATION.03 0 [id number] Not available 10/20/2022 05:52:18 Sister Raynaud's disease ~50's [id number] Not available 10/20/2022 05:52:18 Sister Disease of liver COBOS [id number] [id number] Not available 10/20/2022 05:52:18 Medical History No medical history recorded. Gynecological History Statement/Question Response Abnormal Pap N Date of LMP STIs/STDs N Most Recent Mammogram 08/22/2022 Breast Problems none If Post Menopausal, Age at Menopause Date of Last Mammogram 02/19/2021 Date of Last Colonoscopy 08/22/2016 Most Recent Bone Density 12/03/2022 Sexually Active? Y Date of Last Pap Smear Discharge none Obstetrics History GPAL:G 5 P 4 0 1 0 Type Value Full Term 4 Spontaneous 1 Total 5 Immunizations Vaccine Type Date Status Note Provider Nam e and Address Organization Details Recorded Time SARS-COV-2 (COVID-19) vaccine, UNSPECIFIED 1 completed Not Available [facility] 10/20/2022 06:04:41 SARS-COV-2 (COVID-19) vaccine, UNSPECIFIED 1 completed Not Available [facility] 10/20/2022 06:04:41 Influenza, split virus, quadrivalent, preservative 9 completed Not Available [facility] 10/20/2022 06:04:41 Tdap 9 completed Not Available [facility] 10/20/2022 06:04:42 zoster live 6 completed Not Available [facility] 10/20/2022 06:04:42 Influenza, split virus, trivalent, preservative 6 completed Not Available [facility] 10/20/2022 06:04:42 Influenza, split virus, trivalent, preservative 5 completed Not Available [facility] 10/20/2022 06:04:42 Influenza, split virus, trivalent, preservative 4 completed Not Available [facility] 10/20/2022 06:04:42 Tdap 9 completed Not Available [facility] 10/20/2022 06:04:42 zoster live 6 completed Not Available [facility] 10/20/2022 06:04:42 Past Encounters Encounter ID Performer Location Encounter Start Date Encounter Closed Date Diagnosis/Indication Diagnosis SNOMED-CT Code Diagnosis ICD10 Code Diagnosis Note [id number] Chester Mcclelland MD [facility] [address] [place] [address] 12/26/2020 00:00:00 12/26/2020 16:09:06 [id number] Chester Mcclelland MD [address] [address] 07/28/2021 00:00:00 07/28/2021 17:48:00 [id number] Lisa Walden NP [address] [address] 03/15/2022 00:00:00 03/17/2022 16:43:57 [id number] Lisa Walden NP [address] [address] 03/16/2022 00:00:00 03/16/2022 17:21:07 [id number] Lisa Walden NP [address] [address] 04/19/2022 00:00:00 04/19/2022 16:43:25 [id number] Lisa Walden NP [address] [address] 11/10/2022 15:43:11 11/10/2022 16:38:33 Postmenopausal state 33691347 Z78.0 Dexa ordered. Last done 'few year ago' Gastroesop hageal reflux disease 150045759 K21.9 Omeprazole 40 mg po daily. Vitamin D deficiency 347 61097 E55.9 Vit d 1633-3477 IU po daily otc Hypertensive disorder 38 859363 I10 Lisinopril 10 mg- hctz 12.5 mg po daily Hyperlipidemia 58710771 E78.5 Atorvastat in 10 mg po nightly. Anxiety 49863449 F41.9 escitalopr am 5 mg po daily. Allergic rhinitis 128743 04 J30.9 flonase and loratadine 10 mg po daily. Adult heal th examination 884047618 Z00.00 Encouraged well balanced meals, active lifestyle, and routine vision and dental appts. Diabetes m ellitus screening 074233446 Z13.1 Thyroid di sorder screening 439784784 Z13.29 Anemia screening 0548763 07 Z13.0 [id number] Lisa Walden NP [facility] [address] [address] 04/07/2023 10:38:02 04/07/2023 11:58:55 Health Concerns Section Related Observation LastModified by Organization Detai ls LastModified Time None Recorded Concern Status LastModified by Organization Details LastModified Time None Recorded Advance Directives Directive N: Payers Insurance Date Sequence Insurance Name Policy Number Policy Saleem Covered Member ID Saleem Member ID Guarantor Name 05/14/2023 1 [facility] (O) [id number] Slava Avendano [id number] Notes Date Note Type Note Provider Name and Address Organization Details Recorded Time 11/10/2022 text/html Here for routine adult exam and 6 mo fu. htn- stable. No chest pain or blurred vision.lipid- Stable on low fat diet. and meds.anxiety- stable.gerd- diet mods. omeprazole 40 mg po daily- takes routinely.allergi es- claritin and flonase. Still has rash on body- unsure cause. Generally in bra area. Heat rash? Lisa Walden NP [address] [address], [place], [address], [facility] 11/10/2022 16:37:41 OBGyn Episode No OBEpisode recorded.
--- OUTSIDE RECORDS SUMMARY | 2025-03-05 15:42 | XMS_ITS | Clinical Summary ---
Author Organization [facility] Address [address] [place] [address] Care Team Providers Care Docketing Specialist Name Role Phone Arlene Coronel NP Primary Care Provider [phone] Immunizations Immunization Administration Dates Next Due MODERNA COVID-19 (12+) MRNA, LNP-S, PF, 100 MCG/ 0.5 ML DOSE 10/15/2020,09/12/2020 Social History Tobacco Use Types Packs/Day Years Used Date Smoking Tobacco: Never Assessed Comments Unknown Sex and Gender Information Value Date Recorded Sex Assigned at Not on file Legal Sex Female 4:50 PM CDT Gender Identity Not on file Sexual Orientation Not on file Plan of Treatment Health Maintenance Due Date Last Done Comments Cervical Cancer Screening Pap Smear (Age 30 to 64) Every 3 Years 1963 Colorectal Cancer Screening Colonoscopy (10 Years) 1963 Annual Physical 1966 Hepatitis C 1981 Cervical Cancer Screening Pap with HPV Testing (Age 30 to 64) Every 5 Years 1993 Cervical Cancer Screening with HPV 1993 Pneumococcal Vaccine: 50+ Years (1 of 1 - PCV) 2013 Zoster Vaccines (2 of 3) 09/03/2016 2016, 06/22 Mammogram Screening 10/19/2021 10/19/2019 COVID-19 Vaccine (5 - season) 2024 11/24/2020, 10/27/2020, 10/15/2020, Additional history exists DTaP, Tdap and Td Vaccines (3 - Td or Tdap) 12/28/2028 12/28/2018, 12/27/2018 RSV Immunization or 60+ Years (1 - 1-dose 75+ series) 2038 Meningococcal B Vaccine Aged Out No l onger eligible based on patient's age to complete this topic Meningococcal Vaccine Aged Out No yuridia jo eligible based on patient's age to complete this topic RSV Immunizations Under 20 Months Aged Out No longer eligible based on patient's age to complete this topic Procedures Procedure Name Priority Date/Time Associated Diagnosis Comments MG SCREENING W CHUCK BABAR DIGI Routine 10/19/2019 2:32 PM TECHNICAL SUPPORT PROFESSIONAL Visit for screening mammogram from Last 3 Months or Most Recently Relevant to Health Maintenance Results * MG SCREENING W CHUCK BABAR DIGI (10/19/2019 2:32 PM TECHNICAL SUPPORT PROFESSIONAL) Anatomical Region Laterality Modality Breast Bilateral Mammography 10/19/2019 2:39 PM TECHNICAL SUPPORT PROFESSIONAL Narrative 10/19/2019 2:40 PM TECHNICAL SUPPORT PROFESSIONAL IMAGING STUDIES: MG SCREENING W CHUCK BABAR DIGI DATE: 10/19/2019 2:22 PM INDICATION: screening. COMPARISON: 08/20/2017, 08/23/2018. FINDINGS: Bilateral CC and MLO views, digital with CAD. 2-D with 3-D tomosynthesis. Breast compostition: Category B - There are areas of scattered fibroglandular density. No suspicious microcalcification, worrisome mass or evidence of architectural distortion. No skin thickening or nipple retraction. Benign microcalcifications. CONCLUSION: No mammographic evidence of malignancy. BI-RADS Category 2 - benign findings. Routine screening mammography recommended [facility] BI-RADS Categories: Category 0 - needs additional imaging evaluation. Category 1 - negative. Category 2 - benign findings. Category 3 - probably benign findings, but short interval follow-up is recommended. Category 4 - suspicious abnormality and biopsy should be considered though the lesion may well be benign. Category 5 - highly suggestive of malignancy and appropriate action should be taken. A) A negative report should not delay a biopsy if a dominant or clinically suspicious mass is present. B) Adenosis and dense breasts may obscure an underlying neoplasm. C) Study interpreted with computer aided detection. Interpreted By: Eze Guillen, 10/19/2019 2:39 PM Lisa Herrera FACTORER MAMMO Final R esult from Last 3 Months or Most Recently Relevant to Health Maintenance Insurance Care Teams Docketing Specialist Relationship Specialty Start Date End Date Arlene Coronel NP [facility] [place] [address] PCP - General NURSE PRACTITIONER 10/11/19
--- OUTSIDE RECORDS SUMMARY | 2025-03-05 15:42 | XMS_ITS | Continuity of Care Document ---
Author Organization [facility] Address [address] [place] [address] [place] [address] Phone Care Team Providers Care Casting Wheel Operator Helper Name Role Phone Soy Brandon DO Unavailable Unavailable Advance Directives Directive Yes / No Effective Date File Name No Information Encounters Encounter Description Practice Location Reason(s) For Visit Diagnoses Date Provider Providers Copied on Encounter [facility], [address], [place], [place], [id number], [place] tel:[phone] [facility] No Information Aleksandr Nur. [address] [facility], [place], [address], [place]. tel:[phone] Family History Family Member Type Diagnosis Age At Onset No Information Payers Payer name Insurance type Covered constitution party ID Authoriza tion(s) No Information Social History Type Description Quantity Date Captured Comments Sex Female Smoking Status No Information Chief Complaint And Reason For Visit No Information Reason For Referral Reason For Referral No Information History Of Present Illness Encounter Date Complaint History Of Prese nt Illness No Information Functional Status Date Functional Assessmen t No Information Instructions Date Instruction Additional Infor mation No Information Assessments Type Assessment Date No Information Patient Care Teams Name Effective Dates (start - stop) Status Members No Information
== END 2025-03-05 15:39 | disposition home or self-care (01) ==
LOC: ANHIMG 15:41
PROVIDERS: PCP Family Medicine; Visit Provider Obstetrics & Gynecology Gynecology
DX: Z12.31 Encounter for screening mammogram for malignant neoplasm of breast (principal)
CPT/HCPCS: 77063; 77067

== ENCOUNTER 2025-03-26 09:33 | Outpatient (CLI) | payer BC, SELFPAY ==
--- NOTE | ~2025-03-26 | DEXA_ITS ---
Bone Density Report Name: ALONSO KRAMER Age: 59 Sex: Female Ethnicity: White Date of : 1965 Indication: postmenopausal; screening for osteoporosis; height loss; Referring Provider: Donna Rosales Study: Bone densitometry was performed. Exam Date: March 26, 2025 Accession number: [id number] Bone Density: Region BMD T-score Z-score Classification AP Spine(L1-L4) 0.868 -1.6 -0.1 Osteopenia Femoral Neck (Left) 0.657 -1.7 -0.4 Osteopenia Total Hip (Left) 0.781 -1.3 -0.3 Osteopenia Femoral Neck (Right) 0.741 -1.0 0.4 Normal Total Hip (Right) 0.801 -1.2 -0.1 Osteopenia Total Hip Mean 0.791 -1.3 -0.2 Osteopenia World Health Organization criteria for BMD impression classify patients as: Normal (T-score at or above -1.0), Osteopenia (T-score between -1.0 and -2.5), or Osteoporosis (T-score at or below -2.5). 10-year Fracture Risk: FRAX not reported because: Treated for osteoporosis Clinical Information Provided by Patient: Is being treated for osteoporosis Has used the following medications: Calcium Patient maximum height was 67 Menopause Age: 56 Drinks caffeinated beverages Onset of menses at age 9 Number of children 4 Impression: The patient has low bone mass, based on the Left Femoral Neck T-score. Discussion: It is important to ask patients whether they are taking their medications and to encourage continued and appropriate compliance with their osteoporosis therapies to reduce fracture risk. It is also important to review their risk factors and encourage appropriate calcium and vitamin D intakes, exercise, fall prevention and other lifestyle measures. Follow-Up: Consider a repeat BMD and Vertebral Fracture Assessment (VFA) exam in 2 years or sooner if medically necessary, to reassess this patient's status. Reported by: CARROL on 03/26/2025 10:17:00 AM. Reviewed, dictated and finalized at location A.
== END 2025-03-26 09:34 | disposition home or self-care (01) ==
PROVIDERS: PCP Nurse Practitioner Family; Visit Provider Nurse Practitioner Family
DX: M85.89 Other specified disorders of bone density and structure, multiple sites (principal); Z78.0 Asymptomatic menopausal state
CPT/HCPCS: 77080